=== PATIENT | male | born 1965 | race African-American/Black ===

== ENCOUNTER 2018-06-12 05:18 | Observation (INO) | payer OTHER ==
[2018-06-12] VITALS (7 sets, daily range): BP systolic 111–149; BP diastolic 71–96; PULSE 72–92; RESP 18–20; Ht 172.7 cm; Wt 85.3 kg
[~2018-06-12] VITALS: Ht 172.7 cm; Wt 85.3 kg
--- NOTE | 2018-06-12 11:00 | NUR ---
Patient direct admit from [facility] re: chest pain. Patient denies chest pain, but pain on the left shoulder, patient stated its gout. Will call MD to assess patient. Patient awake alert make needs known, monitor shows SR, patient able to stand up with steady gait to the bathroom. Will continue to monitor.
--- NOTE | 2018-06-12 11:15 | NUR ---
Patient wants to do assessment/admission later.
[2018-06-12] MEDS ORDERED: ONDANSETRON 4 MG INJ IV PRN (11:30)
[2018-06-12] MEDS ORDERED: NACL 0.9% 3 ML SYG IV SCH (11:30)
[2018-06-12] MEDS ORDERED: KETOROLAC 15 MG INJ IV STA (11:34)
--- NOTE | 2018-06-12 11:58 | HP ---
Date/Time of Note Date/Time of Note DATE: 06/12/18 TIME: 11:39 Assessment/Plan VTE Prophylaxis SCD applied (from Ns): Yes Pharmacological prophylaxis: NA/contraindicated Pharm contraindication: low risk/ambulating Assessment/Plan Assessment/Plan 52M with HTN, HIV, CKD (baseline GFR 36-38), gout who presents with chest pain. #Chest pain - Trop neg x1, will trend. - Chest pain pleuritic in quality, not cardiac - With patient's history of recent negative stress test will not pursue further workup if trops are negative. #Cough - CXR #Gout - Patient is at baseline GFR... I will give him toradol x1 and colchicine 1.2 then 0.6. - Will hold off on NSAIDs otherwise - Will reassess after the above treatment, if still very inflammed will consider steroids. - XR elbow. #HIV - Patient does not know the name of his HAART meds. If he remains longer than tomorrow, will call pharmacy to determine his regimen and restart him. #HTN - Will restart home HCTZ and atenolol #Smoker - Nicotine patch DVT: SCDs GI: Protonix HPI/ROS Admit Date/Time Admit Date/Time Jun 12, 2018 at 10:45 Hx of Present Illness Mr. Jimenez is a 52 yo man with history of HIV, CKD (baseline GFR 36-38), gout who presents with chest pain. He was in his usual state of health until last week, when he developed cough productive of brownish sputum. This has actually been improving. Tuesday night and Tuesday he snorted some meth. Soon afterward he developed pleuritic chest pain, worsening with deep inspiration, no change with exertion. Tuesday the pain persisted, so that night he presented to the [facility] ED. In ED, he was HTNsive to 166/95. Labs unremarkable, trop negative. He got sublingual NG x3 and BP improved, chest pain improved. He was transferred here for chest pain workup. Otherwise he also has L elbow pain, swelling, and immobility for a few days not associated with any trauma typical of his usual gout flares. He reports he actually had a treadmill stress test about a week ago by an outpatient regional economic liaison [place] and was told prelim results were negative. ROS Denies recent fever, chills, night sweats, weight loss, sore throat, SOB, palpitations, nausea, vomiting, anorexia, abdominal pain, diarrhea, constipation, dysuria. PMH/Family/Social Past Medical History HIV HTN CKD (baseline Cr 36-38) Gout Medications Current Medications IV Flush (NS 3 ml) 3 ml PER PROTOCOL IV ; Start 06/12/18 at 11:30; Status UNV Ondansetron HCl (Zofran Inj) 4 mg Q6H PRN IV NAUSEA AND/OR VOMITING; Start 06/12/18 at 11:30; Status UNV Acetaminophen/ Hydrocodone Bitart ([place] (5/325)) 1 tab Q6H PRN PO MODERATE PAIN LEVEL 4-6; Start 06/12/18 at 11:30; Status UNV Pantoprazole (Protonix Tab) 40 mg DAILY@06 PO ; Start 06/13/18 at 06:00; Status UNV Senna (Senokot) 2 tab DAILY PO ; Start 06/13/18 at 09:00; Status UNV Ketorolac Tromethamine (Toradol) 15 mg ONCE STAT IV ; Start 06/12/18 at 11:34; Stop 06/12/18 at 11:35; Status UNV Colchicine (Colchicine) 1.2 mg ONCE ONCE PO ; Start 06/12/18 at 12:00; Stop 06/12/18 at 12:01; Status UNV Colchicine (Colchicine) 0.6 mg ONCE ONCE PO ; Start 06/12/18 at 14:00; Stop 06/12/18 at 14:01; Status UNV Nicotine (Nicoderm 21 Mg/ 24hr) 1 patch DAILY TRANSDERM ; Start 06/12/18 at 12:00; Status UNV Past Surgical History Denies Social History Homeless, but recently accepted for Section 8 housing Alcohol Use: occasionally Smoking Status: Current every day smoker (1/2 ppd) Drug Use: marijuana, other (methamphetamine) Exam/Review of Systems Exam Exam Gen: Well developed man in some discomfort from elbow pain, laying on his side in bed. Eyes: PERRL, no icterus HEENT: Clear oropharynx, no ulcers, moist mucous membranes Chest: L chest wall tenderness to palpation Card: Regular rate and rhythm, no murmurs Pulm: Clear to auscultation bilaterally Abd: Soft, nontender, nondistended. Ext: L elbow with small lateral effusion. Exquisitely tender and painful. Severe pain on passive ROM. No cyanosis/clubbing/edema Skin: warm dry well perfused. FLIP BLNACA MD Jun 12, 2018 11:57
[2018-06-12] MEDS ORDERED: COLCHICINE 0.6 MG TAB PO ONE ×2 (12:00→14:00)
[2018-06-12] MEDS ORDERED: HYDROCHLOROTHIAZIDE 50 MG TAB PO SCH (12:00)
[2018-06-12] MEDS: NICOTINE (21 MG/24 HR) PATCH TRANSDERM SCH (13:05)
[2018-06-12] MEDS: ATENOLOL 50 MG TAB PO SCH (13:06)
[2018-06-12] MEDS: HYDROCHLOROTHIAZIDE 25 MG TAB PO SCH (14:29)
[2018-06-12] MEDS: HYDROCODONE/APAP (5/325) TAB PO PRN ×2 (17:22→22:03)
--- NOTE | 2018-06-12 18:42 | NUR ---
EOSS: Patient A/A/Ox4, able to make needs known , SR on monitor. With order to shower, per Dr. Licona staff on stand by while showering. Pain medication given as ordered. Will continue to monitor.
[2018-06-13] VITALS (8 sets, daily range): BP systolic 128–154; BP diastolic 71–107; PULSE 68–81; RESP 18–20
[2018-06-13] MEDS ORDERED: PANTOPRAZOLE (EC) 40 MG TAB PO SCH (06:00)
[2018-06-13] MEDS: HYDROCODONE/APAP (5/325) TAB PO PRN ×2 (06:37→12:38)
--- NOTE | 2018-06-13 07:22 | NUR ---
EOSS: Pt. a/o x4. Pt able to ambulate. Pt. on tele monitor. Vital signs WNL. Pt. stable. Call light within reach. Hourly rounding completed. Will endorse continuity of care to day shift.
[2018-06-13] MEDS: HYDROCHLOROTHIAZIDE 25 MG TAB PO SCH (08:42)
[2018-06-13] MEDS: ATENOLOL 50 MG TAB PO SCH (08:43)
[2018-06-13] MEDS: NICOTINE (21 MG/24 HR) PATCH TRANSDERM SCH (09:00)
[2018-06-13] MEDS ORDERED: SENNA TAB PO SCH (09:00)
--- NOTE | 2018-06-13 10:57 | PDOCDIS ---
Discharge Instructions DIAGNOSIS Discharge Diagnosis Pleuritic noncardiac chest pain Gout flare CONDITION [id number] Patient Condition: [id number] Good HOME CARE INSTRUCTIONS: [id number] Diet Instructions: Acelr0c Regular ACTIVITY: [id number] Activity Restrictions: [id number] No Restrictions FOLLOW UP/APPOINTMENTS Follow-up Plan 1. Continue to take all medications as prescribed. 2. Do NOT take allopurinol while in a gout flare, it may make it worse. Continue to take colchicine. 3. Quit smoking and all illicit drugs. FLIP BLANCA MD Jun 13, 2018 10:57
--- NOTE | 2018-06-13 13:15 | NUR ---
SW: HOMELESS ZANDRA met with this 52-year-old Mongolian speaking male to assess his living situation and to provide appropriate community resources. Patient states that he is currently homeless, but states that he has been approved for section 8 voucher. States that he has an appointment tomorrow, 06/14/18 at 9:00am with housing authority. Patient states that he does not have a place to stay tonight and requested resources. Patient states that he is currently single and has 4 adult children who he keeps in contact with. He denies having an AHCD, and he verbally designated his daughter Elida ([phone]) as his surrogate medical spokesperson. Patient states he is unemployed and receives foodstamps and GR. States that he will be receiving his section 8 voucher tomorrow, and states that he has already started working on finding an apartment. SW provided patient with resources for affordable apartments. SW also provided patient with viable group home information, such as [facility], and provided him with winter group home pickup times (5:15pm, 5:45pm, 6:15pm, 7:15pm, etc). SW provided him with the address and printed directions on walking/ bus route. SW provided him with 2 bus tokens. RN states that patient can stay until lunch time to get a meal, and she will provide him with food upon d/c. Patient states he has adequate clothing for the season. RN to speak with MD regarding medication prescription. Patient states that he has a PMD at [facility]. He states that he has a history of diagnosed major depression disorder and bipolar disorder. States that he is not on any psychotropic medications because he does not like to take the medication because he did not see the medication making any difference. States that his mental illness is managed adequately. States that he sees a mental health professional at [facility]. Patient denies any past/ present thoughts, ideations or plans of suicide / homicide. Patient has completed and signed the d/c consent form for persons without a permanent address and indicated he will be going to winter group home upon d/c. Patient aware that he can change his mind at anytime and go anywhere else he wants. Patient's RN Macy was present when resources were provided and she signed as a witness. Patient will be provided with 2 bus tokens upon d/c. Patient denies any questions or concerns at this time. Patient aware that SW remains available as needed throughout patient's treatment process.
--- NOTE | 2018-06-13 14:30 | NUR ---
D/C IV,D/C Tele, D/C instructions given, verbalized understanding, prescription given, ID band taken out. Restaurant Cashier, Lou gave information of chcf around area, where to get hot meals, shower, etc. tokens x2 given to patient for bus fare. Patient homeless.
--- NOTE | 2018-06-13 16:27 | DS ---
Date/Time of Note Date/Time of Note DATE: 06/13/18 TIME: 16:25 Discharge Summary Admission/Discharge Info Admit Date/Time Jun 12, 2018 at 10:45 Discharge Date/Time Jun 13, 2018 at 14:48 Discharge Diagnosis Pleuritic noncardiac chest pain Gout flare Patient Condition: Good Consults None Procedures None Hx of Present Illness Mr. Jimenez is a 52 yo man with history of HIV, CKD (baseline GFR 36-38), gout who presents with chest pain. He was in his usual state of health until last week, when he developed cough productive of brownish sputum. This has actually been improving. Tuesday night and Tuesday he snorted some meth. Soon afterward he developed pleuritic chest pain, worsening with deep inspiration, no change with exertion. Tuesday the pain persisted, so that night he presented to the [facility] ED. In ED, he was HTNsive to 166/95. Labs unremarkable, trop negative. He got sublingual NG x3 and BP improved, chest pain improved. He was transferred here for chest pain workup. Otherwise he also has L elbow pain, swelling, and immobility for a few days not associated with any trauma typical of his usual gout flares. He reports he actually had a treadmill stress test about a week ago by an outpatient manager of tax here in the [place] and was told prelim results were negative. Hospital Course For his chest pain, his EKG was reviewed with no evidence of ST-T changes concerning for ischemia. He got serial troponins which were negative x3. Due to his low risk for ACS, no stress test done. He was in a gout flare with L elbow pain and inflammation. He got toradol 25mg IV and colchicine PO. His Cr did bump slightly after this. Due to his CKD I will discharge him with his colchicine maintenance therapy and norco for pain, no NSAIDs. Home Meds No Active Prescriptions or Reported Meds Follow-up Plan 1. Continue to take all medications as prescribed. 2. Do NOT take allopurinol while in a gout flare, it may make it worse. Continue to take colchicine. 3. Quit smoking and all illicit drugs. Primary Care Provider Not On Staff Doctor Time spent on discharge: > 30 minutes Pending Labs Laboratory Tests Test 06/12/18 19:14 06/13/18 06:01 Troponin I < 0.012 < 0.012 ng/ml (0.000-0.120) ng/ml (0.000-0.120) White Blood Count 8.4 10^3/ul (4.8-10.8) Red Blood Count 4.50 10^6/ul (4.70-6.10) Hemoglobin 15.2 g/dl (14.0-18.0) Hematocrit 45.1 % (42.0-52.0) Mean Corpuscular Volume 100.2 fl (82.0-101.0) Mean Corpuscular 33.8 pg (29.0-33.0) Hemoglobin Mean Corpuscular 33.7 g/dl (32.0-37.0) Hemoglobin Concent Red Cell Distribution 11.9 % (11.5-14.5) Width Platelet Count 240 10^3/UL (140-415) Mean Platelet Volume 10.1 fl (7.4-10.4) Immature Granulocytes % 0.400 % (0.001-0.429) Neutrophils % 65.2 % (39.0-77.0) Lymphocytes % 20.5 % (15.0-51.0) Monocytes % 10.3 % (0.0-11.0) Eosinophils % 3.2 % (0.0-7.0) Basophils % 0.4 % (0.0-2.0) Nucleated Red Blood Cells 0.0 /100WBC (0.0-0.0) % Immature Granulocytes # 0.030 10^3/ul (0.0-0.031) Neutrophils # 5.5 10^3/ul (1.6-7.5) Lymphocytes # 1.7 10^3/ul (0.8-2.9) Monocytes # 0.9 10^3/ul (0.3-0.9) Eosinophils # 0.3 10^3/ul (0.0-0.5) Basophils # 0.0 10^3/ul (0.0-0.1) Nucleated Red Blood Cells 0.0 10^3/ul (0.0-0.0) # Sodium Level 134 mmol/L (135-144) Potassium Level 3.9 mmol/L (3.5-5.1) Chloride Level 99 mmol/L (97-110) Carbon Dioxide Level 28 mmol/L (21-31) Anion Gap 7 (5-13) Blood Urea Nitrogen 30 mg/dl (7-20) Creatinine 2.42 mg/dl (0.61-1.24) Est Glomerular Filtrat 34 mL/min (>60) Rate mL/min Glucose Level 100 mg/dl (70-220) Hemoglobin A1c 4.9 % (0-5.9) Calcium Level 9.3 mg/dl (8.4-10.2) Phosphorus Level 2.9 mg/dl (2.5-4.9) Magnesium Level 1.9 mg/dl (1.7-2.5) Total Bilirubin 1.0 mg/dl (0.2-1.3) Direct Bilirubin 0.00 mg/dl (0.00-0.20) Indirect Bilirubin 1.0 mg/dl (0-1.1) Aspartate Amino 44 IU/L (15-46) Transf (AST/SGOT) Alanine 34 IU/L (13-69) Aminotransferase (ALT/SGPT ) Alkaline Phosphatase 79 IU/L (42-121) Total Protein 7.6 g/dl (6.1-8.1) Albumin 3.7 g/dl (3.3-4.9) Globulin 3.90 g/dl (1.3-3.2) Albumin/Globulin Ratio 0.94 Triglycerides Level 124 mg/dl (0-149) Cholesterol Level 123 mg/dl (100-200) LDL Cholesterol, 47 mg/dl Calculated HDL Cholesterol 51 mg/dl (28-71) Cholesterol/HDL Ratio 2.4 RATIO Thyroid Stimulating 0.154 MIU/L (0.465-4.680) Hormone (TSH) FLIP BLANCA MD Jun 13, 2018 16:27
== END 2018-06-13 14:48 | disposition home or self-care (01) ==
LOC: INTOOBSV 10:45 → TEL 10:45
PROVIDERS: ADMIT Internal Medicine; ATTEND Internal Medicine
DX: R07.89 Other chest pain (principal); I12.9 Hypertensive chronic kidney disease with stage 1 through stage 4 chronic kidney disease, or unspecified chronic kidney disease; N18.9 Chronic kidney disease, unspecified; F17.200 Nicotine dependence, unspecified, uncomplicated; D84.8 Other specified immunodeficiencies; R05 Cough; M10.9 Gout, unspecified
CPT/HCPCS: 71045; 73080; 80053; 80061; 83036; 83735; 84100; 84443; 84484; 85025; J1885; Z7500; Z7610; 90686; 99217; G0378